=== PATIENT | female | born 1985 ===

== ENCOUNTER 2016-11-26 06:54 | Inpatient (IN) | payer OTHER ==
[2016-11-26] VITALS (24 sets, daily range): BP systolic 107–142; BP diastolic 43–99
[~2016-11-26] VITALS: Ht 167.6 cm; Wt 68.0 kg
[~2016-11-26 06:54] MED LIST: ceFAZolin sod 2 GM in D5W 110 ML IVPB ONE
[2016-11-26] MEDS ORDERED: Thrombin 5000 units TOPIC ONE (07:48)
[2016-11-26] MEDS ORDERED: Surgicel 4in x 8in TOPIC ONE (07:48)
[2016-11-26] MEDS ORDERED: Lacri-Lube Opth Oint 3.5gm ONE (07:48)
[2016-11-26] MEDS ORDERED: Bacitracin 50000 Units Vial ONE (07:49)
[2016-11-26] MEDS ORDERED: Vancomycin 1gm inj IVPB ONE (07:49)
[2016-11-26] MEDS ORDERED: Thrombin 5000 units spray kit TOPIC ONE (07:49)
[2016-11-26] MEDS ORDERED: Gelfoam Absorbable 1gm powder pkt TOPIC ONE (07:49)
[2016-11-26] MEDS ORDERED: Bupivacaine w/Epi 0.5% 30ml Vial INJ ONE (07:49)
[2016-11-26] MEDS ORDERED: GABAPENTIN800 MG ORAL (07:59)
[2016-11-26] MEDS ORDERED: CYCLOBENZAPRINE10 MG ORAL (07:59)
[2016-11-26] MEDS ORDERED: METHADONE10 MG/1 M1 PO (07:59)
--- NOTE | 2016-11-26 08:54 | Pre-Procedure Note/Attestation ---
Pre-Procedure Note/Attestation Complete Prior to Procedure Procedure Narrative: L5-S1 instrumentation, decompression and interbody fusion Indications for Procedure Pre-Operative Diagnosis: L5S1 annular tear with radiculopathy Attestation I attest that I discussed the nature of the procedure; its benefits; risks and complications; and alternatives (and the risks and benefits of such alternatives ), prior to the procedure, with the patient (or the patient's legal international account representative). I attest that, if there was a reasonable possibility of needing a blood transfusion, the patient (or the patient's legal international account representative) was given the [facility] standardized written summary, pursuant to the Jose Maria Luz Blood Safety Act ([place] Health and Safety Code # 1645, as amended). I attest that I re-evaluated the patient just prior to the surgery and that there has been no change in the patient's H&P, except as documented below: ARANZA CURRAN Nov 26, 2016 08:54
[2016-11-26] MEDS ORDERED: Sterile Water Irrig 1000ml IRRIG ONE (09:00)
[2016-11-26] MEDS ORDERED: Propofol 10mg/ml 100ml btl IV ONE (09:00)
[2016-11-26] MEDS ORDERED: Midazolam 2mg/2ml Inj ONE (09:00)
[2016-11-26] MEDS ORDERED: LR 1000ml ONE (09:00)
[2016-11-26] MEDS ORDERED: fentaNYL 250mcg/5ml ONE (09:00)
[2016-11-26] MEDS ORDERED: NS Irrig 1000ml ONE (09:00)
[2016-11-26] MEDS ORDERED: Nimbex 2mg/ml Inj 10ML IVP ONE (09:00)
[2016-11-26] MEDS ORDERED: LR 1000ml 1,000 ML IVLG SCH (10:34)
--- NOTE | 2016-11-26 10:42 | Anethesia Preoperative Eval ---
Anesthesia Pre-op PMH/ROS General Date of Evaluation: Nov 26, 2016 Time of Evaluation: 08:50 Anesthesiologist: Lisa ASA Score: ASA 3 Mallampati Score Class I : Soft palate, uvula, fauces, pillars visible Class II: Soft palate, uvula, fauces visible Class III: Soft palate, base of uvula visible Class IV: Only hard plate visible Mallampati Classification: Class II Surgeon: Polly Diagnosis: Lumbar Radiculopathy Surgical Procedure: Transforaminal lumbar interbody fusion Social History: drug use - On methadone maintenance Family History: no anesthesia problems Allergies: Coded Allergies: No Known Allergies (Unverified , 11/23/16) Medications: see eMAR Past Medical History Cardiovascular: Denies: CAD, HTN, [place], arrhythmia, other, valve dz Pulmonary: Denies: COPD, ESTHER, asthma, other Gastrointestinal/Genitourinary: Denies: CRI, ESRD, GERD, other Neurologic/Psychiatric: Reports: other - Seizure disorder, Denies: CVA, TIA, dementia, depression/anxiety Endocrine: Denies: DM, hypothyroidism, other, steroids HEENT: Denies: [place] (L), [place] (R), cataract (L), cataract (R), glaucoma, other Hematology/Immune: Denies: DVT, anemia, bleeding disorder, other Musculoskeletal/Integumentary: Denies: DDD, DJD, OA, RA, edema, other PMH Narrative: Hep C, Seizure disorder (secondary to traumatic brain injury), former substance abuse (on methadone maintenance) PSxH Narrative: Lower extremity ORIF. Anesthesia Pre-op Phys. Exam Physician Exam Last Vital Signs Date Time Temp Pulse Resp B/P Pulse Ox O2 Delivery O2 Flow Rate FiO2 11/26/16 07:33 98.6 74 20 107/68 98 Room Air Constitutional: NAD Neurologic: CN 2-12 intact Cardiovascular: RRR, no M/R/G Respiratory: CTA Gastrointestinal: S/NT/ND Airway Exam Mallampati Score: Class II MO: full ROM: full Teeth: intact Anesthesia Pre-op A/P Labs WNL Urine Test Test 11/26/16 07:10 Urine HCG, Qualitative Negative Studies Pre-op Studies: EKG - NSR, CXR Risk Assessment & Plan Assessment: 31 yo female with h/o Hep C, seizures and former substance abuse for Transforaminal LIF Plan: GETA Status Change Before Surgery: No Pre-Antibiotics Drug: Ancef Given Within 1 Hr of Incision: Yes Time Given: 09:15 AMY VILLAR M.D. Nov 26, 2016 10:42
--- NOTE | 2016-11-26 10:43 | Immediate Post-Op Evaluation ---
Immediate Post-Op Evalulation Immediate Post-Op Evalulation Procedure: PLIF Date of Evaluation: Nov 26, 2016 Time of Evaluation: 14:30 IV Fluids: 1750 Estimated Blood Loss: 200 Urinary Output: 200 Blood Pressure Systolic: 129 Blood Pressure Diastolic: 79 Pulse Rate: 98 Respiratory Rate: 20 O2 Sat by Pulse Oximetry: Temperature (Fahrenheit): 97.0 Pain Score (1-10): 6 Nausea: No Vomiting: No Complications No complication Patient Status: awake, patent, extubated, none Hydration Status: adequate Drug: Ancef Given Within 1 Hr of Incision: Yes Time Given: 09:15 AMY VILLAR M.D. Nov 26, 2016 10:43
[2016-11-26] MEDS ORDERED: Meperidine 25mg/0.5ml Inj IV PRN (10:45)
[2016-11-26] MEDS ORDERED: LORazepam Inj 2mg/ml 1ml IV PRN (10:45)
[2016-11-26] MEDS ORDERED: Hydromorphone 0.5mg/0.5ml inj IVP PRN (10:45)
[2016-11-26] MEDS ORDERED: Propofol 10mg/ml 20ml IV ONE (13:47)
--- NOTE | 2016-11-26 13:57 | Brief Operative Note ---
Immediate Post Operative Note Operative Note Pre-op Diagnosis: L5S1 annular tear with radiculopathy Procedure: L5S1 TLIF and decompression Post-op Diagnosis: same as pre-op Findings: consistent w/pre-op dx studies Surgeon: Polly Greenhouse Florist: Jude Anesthesiologist: Lisa Anesthesia: general Specimen: none Complications: none Condition: stable Fluids: 1750 Estimated Blood Loss: volume - 200cc Drains: hemovac Implant(s) used?: Yes ARANZA CURRAN Nov 26, 2016 13:57
[2016-11-26] MEDS ORDERED: LORazepam Inj 2mg/ml 1ml IV ONE ×3 (14:17→15:30)
[2016-11-26] MEDS: HYDROmorphone 1mg/ml Carpuject IVP SCH ×18 (14:30→22:52)
[2016-11-26] MEDS ORDERED: HYDROmorphone 1mg/ml Carpuject IVP STA (16:18)
[2016-11-26] MEDS ORDERED: Meperidine 50mg/ml Inj IM ONE (17:00)
[2016-11-26] MEDS ORDERED: Meperidine 50mg/ml Inj IVP ONE (17:15)
--- NOTE | 2016-11-26 17:25 | Diagnostic Imaging Report ---
Indication: PAIN, intraoperative Technique: Digital intraoperative image Comparison: None Findings: Intraoperative images demonstrate placement of localizer tool, apparently at L5-S1. Subsequent images document posterior fusion and placement of a disc spacer at L5-S1. Impression: Intraoperative imaging, as described
[2016-11-26] MEDS ORDERED: Naloxone 0.4mg/ml Inj IVP PRN ×2 (18:15→19:15)
[2016-11-26] MEDS ORDERED: HYDROmorphone 1mg/ml Carpuject SUBQ PRN (18:15)
[2016-11-26] MEDS ORDERED: Norco 5mg/325mg tab ORAL PRN (18:15)
[2016-11-26] MEDS ORDERED: Norco 7.5mg/325mg tab ORAL PRN ×2 (18:15)
[2016-11-26] MEDS ORDERED: LR 1000ml 1,000 ML IV SCH (19:00)
[2016-11-26] MEDS: D5 1/2NS 1,000 ML IV SCH (19:00)
[2016-11-26] MEDS ORDERED: Rate Change PCA 1 Each MISC PRN (19:15)
[2016-11-26] MEDS: PCA HYDROmorphone 1mg/ml 30 ML IV PRN (19:44)
[2016-11-26] MEDS: ceFAZolin sod 1 GM in D5W 55 ML IV SCH (21:32)
[2016-11-26] MEDS: Docusate 100mg cap ORAL SCH (21:53)
--- NOTE | 2016-11-26 22:35 | Consultation ---
History of Present Illness General Date patient seen: Nov 27, 2016 Present Illness Allergies: Coded Allergies: No Known Allergies (Unverified , 11/23/16) Medication History Scheduled Cyclobenzaprine Hcl* (Flexeril*), 10 MG ORAL THREE TIMES A DAY, (Reported) Gabapentin* (Gabapentin*), 900 MG ORAL TWICE A DAY, (Reported) Methadone Hcl (Methadone Hcl), 67 MG PO DAILY, (Reported) Patient History Healthcare decision maker Resuscitation status Full Code Advanced Directive on File No Physical Exam Last 24 Hour Vital Signs Date Time Temp Pulse Resp B/P Pulse Ox O2 Delivery O2 Flow Rate FiO2 11/26/16 20:26 97.7 75 18 120/71 98 Room Air 11/26/16 20:14 97.7 11/26/16 19:55 18 11/26/16 18:15 97.5 82 18 127/78 96 Nasal Cannula 2.0 11/26/16 18:00 97.9 85 16 116/78 98 Nasal Cannula 2.0 11/26/16 17:30 98.6 11/26/16 17:25 98.6 83 18 128/87 95 Nasal Cannula 3.0 11/26/16 17:15 96 18 115/89 95 Room Air 11/26/16 17:07 98.6 11/26/16 17:00 94 18 117/69 95 Room Air 11/26/16 16:48 97.0 11/26/16 16:47 93 16 118/76 98 Room Air 11/26/16 16:37 110 16 136/84 98 Room Air 11/26/16 16:30 101 20 140/99 98 Room Air 11/26/16 16:15 105 20 129/84 98 Room Air 11/26/16 16:05 100 20 129/84 98 Room Air 11/26/16 15:55 93 20 129/71 98 Room Air 11/26/16 15:40 93 20 129/71 98 Room Air 11/26/16 15:30 108 20 115/78 98 Room Air 11/26/16 15:20 90 20 125/77 98 Room Air 11/26/16 15:10 87 20 132/85 98 Room Air 11/26/16 15:00 117 20 142/73 98 Room Air 11/26/16 14:50 107 20 137/87 98 Room Air 11/26/16 14:40 107 20 117/43 98 Room Air 11/26/16 14:34 98 20 11/26/16 14:30 111 20 126/85 98 Room Air 11/26/16 14:25 102 20 135/94 98 Room Air 11/26/16 14:17 98 20 129/79 98 Simple Mask 8.0 11/26/16 14:15 97.0 98 20 129/79 98 Simple Mask 8.0 11/26/16 07:33 98.6 74 20 107/68 98 Room Air Laboratory Tests Test 11/26/16 07:10 Urine HCG, Qualitative Negative Height (Feet): 5 Height (Inches): 6.00 Weight (Pounds): 150 Medications Current Medications Medications (Trade) Dose Ordered Sig/Raf Route PRN Reason Start Time Stop Time Status Last Admin Dose Admin Cefazolin Sodium/ Dextrose (Ancef/D5W) 55 ml @ 110 mls/hr Q8H IV 11/26/16 20:00 11/27/16 12:29 11/26/16 21:32 Dextrose/Sodium Chloride 1,000 ml @ 100 mls/hr Q10H IV 11/26/16 19:00 12/26/16 18:59 11/26/16 19:00 Docusate Sodium (Colace) 100 mg TWICE A DAY ORAL 11/26/16 21:00 12/26/16 20:59 11/26/16 21:53 Gabapentin 800 mg 800 mg THREE TIMES A DAY ORAL 11/26/16 19:00 12/26/16 18:59 11/26/16 21:31 Hydromorphone HCl ([place] Dilaudid) 30 ml @ 0 mls/hr Q24H PRN IV For Pain 11/26/16 19:15 11/28/16 19:14 11/26/16 19:44 Methadone HCl (Methadone HCl) 67 mg DAILY ORAL 11/27/16 09:00 12/04/16 08:59 UNV Miscellaneous Medication ([place] Rate Change) 1 ea DAILYPRN PRN MISC rate change 11/26/16 19:15 11/28/16 19:14 Miscellaneous Medication ([employer] [place] shift volume) 1 ea Q12HR@0700,1900 MISC 11/27/16 07:00 11/29/16 06:59 Naloxone HCl (Narcan) 0.1 mg Q1M PRN IVP RR<10/min OR SBP<90 mmHg 11/26/16 19:15 11/28/16 19:14 Ondansetron HCl (Zofran) 4 mg Q6H PRN IVP Nausea & Vomiting 11/26/16 19:15 11/28/16 19:14 Oxycodone/ Acetaminophen (Percocet 10/325) 1 tab Q4H PRN ORAL moderate breakthrough pain 11/26/16 19:15 12/03/16 19:14 Assessment/Plan Assessment/Plan (1) Lumbar Herniated disc (2) Lumbar Radiculopathy (3) S/p Lumbar fusion (4) H/o Heroin Abuse on Methadone Seen dictated. AMANDA NELSON Nov 26, 2016 22:35
[2016-11-26] MEDS ORDERED: HYDROmorphone 1mg/ml Carpuject IVP PRN (22:45)
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
[2016-11-27] MEDS: ceFAZolin sod 1 GM in D5W 55 ML IV SCH ×2 (03:58→12:35)
[2016-11-27 04:00] VITALS: BP 127/77
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
[2016-11-27] MEDS: D5 1/2NS 1,000 ML IV SCH ×2 (05:59→11:53)
[2016-11-27] MEDS: PCA shift volume MISC SCH ×2 (07:00→19:16)
[2016-11-27 07:58] LABS: ALANINE AMINOTRANSFERASE 20 U/L (3-33); ALBUMIN/GLOBULIN RATIO 1.6 (1.0-2.7); ANION GAP 14 (5-15); ASPARTATE AMINO TRANSFERASE 50 U/L (5-40); CALCIUM 8.4 mg/dL (8.6-10.2); CARBON DIOXIDE 25 mEQ/L (20-30); CHLORIDE 99 mEQ/L (98-107); CREATININE 0.7 mg/dL (0.5-0.9); GLOMERULAR FILTRATION RATE > 60 mL/min (>60); HEMOLYSIS 5; POTASSIUM 3.2 mEQ/L (3.4-4.9); SODIUM 138 mEQ/L (135-145); TOTAL PROTEIN 6.1 g/dL (6.6-8.7)
[2016-11-27 08:06] LABS: BASOPHILS % (AUTO) 0.4 % (0.0-2.0); EOSINOPHILS % (AUTO) 0.1 % (0.0-3.0); LYMPHOCYTES % (AUTO) 13.6 % (20.0-45.0); MEAN CORPUSCULAR HEMOGLOBIN 30.2 PG (27.0-31.0); MEAN CORPUSCULAR HGB CONC 33.3 G/DL (32.0-36.0); MEAN CORPUSCULAR VOLUME 90 FL (80-99); MEAN PLATELET VOLUME 8.3 FL (6.5-10.1); MONOCYTES % (AUTO) 7.7 % (1.0-10.0); NEUTROPHILS % (AUTO) 78.2 % (45.0-75.0); PLATELET COUNT 139 K/UL (150-450); RED BLOOD COUNT 4.04 M/UL (4.20-5.40); RED CELL DISTRIBUTION WIDTH 11.5 % (11.6-14.8); WHITE BLOOD COUNT 8.9 K/UL (4.8-10.8)
[2016-11-27 08:13] VITALS: BP 125/67
[2016-11-27] MEDS ORDERED: LORazepam 1mg tab ORAL PRN (08:30)
[2016-11-27] MEDS: Docusate 100mg cap ORAL SCH ×2 (08:43→19:21)
--- NOTE | 2016-11-27 08:48 | General Progress Note ---
Assessment/Plan Assessment/Plan (1) Lumbar Herniated disc (2) Lumbar Radiculopathy (3) S/p Lumbar fusion (4) H/o Heroin Abuse on Methadone The patient will be continued on the Methadone, [employer] Dilaudid, Percocet and Neurontin. We will increase the Dilaudid IV to 2mg Q3H PRN severe pain. We will start Baclofen 10mg PO 1 tab Q8H and Valium 5 mg PO 1 tab Q6H PRN. The patient was discussed with Dr. Hoang and Dr. Hoang concurred. Subjective Date patient seen: Nov 27, 2016 Time patient seen: 06:45 - am Allergies: Coded Allergies: No Known Allergies (Unverified , 11/23/16) Subjective REVIEW OF SYSTEMS: Denies rash, fever, chills, sweating, dizziness, drowsiness, burred vision, sore throat, or change in weight. No shortness of breath or chest pain. No nausea, vomiting, diarrhea, or blood in the stool or urine. No bowel or bladder incontinence. No dysuria. She is complaining of low back pain. SUBJECTIVE: Patient is c/o severe pain and spasm in her lower back. She has used 20mg of the [employer] and received the daily methadone dose. Objective Last 24 Hour Vital Signs Date Time Temp Pulse Resp B/P Pulse Ox O2 Delivery O2 Flow Rate FiO2 11/27/16 08:13 98.1 107 20 125/67 98 Room Air 11/27/16 08:00 18 11/27/16 05:40 20 11/27/16 04:28 98.2 11/27/16 04:00 20 11/27/16 04:00 98.2 99 20 127/77 96 Room Air 11/27/16 01:40 18 11/27/16 00:00 18 11/26/16 21:40 18 11/26/16 21:10 18 11/26/16 20:40 18 11/26/16 20:26 97.7 75 18 120/71 98 Room Air 11/26/16 20:25 18 11/26/16 20:14 97.7 11/26/16 20:10 18 11/26/16 19:55 18 11/26/16 18:15 97.5 82 18 127/78 96 Nasal Cannula 2.0 11/26/16 18:00 97.9 85 16 116/78 98 Nasal Cannula 2.0 11/26/16 17:30 98.6 11/26/16 17:25 98.6 83 18 128/87 95 Nasal Cannula 3.0 11/26/16 17:15 96 18 115/89 95 Room Air 11/26/16 17:07 98.6 11/26/16 17:00 94 18 117/69 95 Room Air 11/26/16 16:48 97.0 11/26/16 16:47 93 16 118/76 98 Room Air 11/26/16 16:37 110 16 136/84 98 Room Air 11/26/16 16:30 101 20 140/99 98 Room Air 11/26/16 16:15 105 20 129/84 98 Room Air 11/26/16 16:05 100 20 129/84 98 Room Air 11/26/16 15:55 93 20 129/71 98 Room Air 11/26/16 15:40 93 20 129/71 98 Room Air 11/26/16 15:30 108 20 115/78 98 Room Air 11/26/16 15:20 90 20 125/77 98 Room Air 11/26/16 15:10 87 20 132/85 98 Room Air 11/26/16 15:00 117 20 142/73 98 Room Air 11/26/16 14:50 107 20 137/87 98 Room Air 11/26/16 14:40 107 20 117/43 98 Room Air 11/26/16 14:34 98 20 11/26/16 14:30 111 20 126/85 98 Room Air 11/26/16 14:25 102 20 135/94 98 Room Air 11/26/16 14:17 98 20 129/79 98 Simple Mask 8.0 11/26/16 14:15 97.0 98 20 129/79 98 Simple Mask 8.0 Intake and Output 11/26/16 11/27/16 19:00 07:00 Intake Total 3200 ml 900 ml Output Total 500 ml 2400 ml Balance 2700 ml -1500 ml Intake IV Total 3200 ml 900 ml Output Urine Total 300 ml 2300 ml Drainage Total 100 ml Estimated Blood Loss 200 ml # Voids 1 2 Laboratory Tests 11/27/16 07:20: White Blood Count 8.9, Red Blood Count 4.04L, Hemoglobin 12.2, Hematocrit 36.5L , Mean Corpuscular Volume 90, Mean Corpuscular Hemoglobin 30.2, Mean Corpuscular Hemoglobin Concent 33.3, Red Cell Distribution Width 11.5L, Platelet Count 139L, Mean Platelet Volume 8.3, Neutrophils (%) (Auto) 78.2H, Lymphocytes (%) (Auto) 13.6L, Monocytes (%) (Auto) 7.7, Eosinophils (%) (Auto) 0.1, Basophils (%) (Auto) 0.4, Sodium Level 138, Potassium Level 3.2L, Chloride Level 99, Carbon Dioxide Level 25, Anion Gap 14, Blood Urea Nitrogen 3L, Creatinine 0.7, Estimat Glomerular Filtration Rate > 60, Glucose Level 133H, Hemoglobin A1c [Pending], Calcium Level 8.4L, Total Bilirubin 0.5, Aspartate Amino Transf (AST/SGOT) 50H, Alanine Aminotransferase (ALT/SGPT) 20, Alkaline Phosphatase 64, Total Protein 6.1L, Albumin 3.8, Globulin 2.3, Albumin/Globulin Ratio 1.6 Height (Feet): 5 Height (Inches): 6.00 Weight (Pounds): 150 Objective GENERAL: Alert, awake, and oriented x3. NECK: Range of motion is full in all directions. No tenderness to paracervical muscles. No adenopathy. LUNGS: Clear. HEART: Regular. ABDOMEN: Benign. EXTREMITIES: No cyanosis. No clubbing. No edema. NEURO: No changes. AMANDA NELSON Nov 27, 2016 08:48
--- NOTE | 2016-11-27 09:17 | History & Physical ---
History and Physical History & Physicial patient is seen and examined. Dictation is completed Michelle Monique MD Nov 27, 2016 09:17
--- NOTE | 2016-11-27 09:19 | General Progress Note ---
Assessment/Plan Status: stable Assessment/Plan 1- Lumbar Spongylosis with Myelopathy: S/P LIF 2- Chronic pain 3- hep-C 4- Thrombocytopenia Plan: Pain management SCD's for pain DVT prophylaxia Hep-C treatment defer to out patient Subjective ROS Limited/Unobtainable: No Constitutional: Reports: other - mild pain HEENT: Reports: no symptoms Cardiovascular: Reports: no symptoms Gastrointestinal/Abdominal: Reports: no symptoms Allergies: Coded Allergies: No Known Allergies (Unverified , 11/23/16) Objective Last 24 Hour Vital Signs Date Time Temp Pulse Resp B/P Pulse Ox O2 Delivery O2 Flow Rate FiO2 11/27/16 08:13 98.1 107 20 125/67 98 Room Air 11/27/16 08:00 18 11/27/16 05:40 20 11/27/16 04:28 98.2 11/27/16 04:00 20 11/27/16 04:00 98.2 99 20 127/77 96 Room Air 11/27/16 01:40 18 11/27/16 00:00 18 11/26/16 21:40 18 11/26/16 21:10 18 11/26/16 20:40 18 11/26/16 20:26 97.7 75 18 120/71 98 Room Air 11/26/16 20:25 18 11/26/16 20:14 97.7 11/26/16 20:10 18 11/26/16 19:55 18 11/26/16 18:15 97.5 82 18 127/78 96 Nasal Cannula 2.0 11/26/16 18:00 97.9 85 16 116/78 98 Nasal Cannula 2.0 11/26/16 17:30 98.6 11/26/16 17:25 98.6 83 18 128/87 95 Nasal Cannula 3.0 11/26/16 17:15 96 18 115/89 95 Room Air 11/26/16 17:07 98.6 11/26/16 17:00 94 18 117/69 95 Room Air 11/26/16 16:48 97.0 11/26/16 16:47 93 16 118/76 98 Room Air 11/26/16 16:37 110 16 136/84 98 Room Air 11/26/16 16:30 101 20 140/99 98 Room Air 11/26/16 16:15 105 20 129/84 98 Room Air 11/26/16 16:05 100 20 129/84 98 Room Air 11/26/16 15:55 93 20 129/71 98 Room Air 11/26/16 15:40 93 20 129/71 98 Room Air 11/26/16 15:30 108 20 115/78 98 Room Air 11/26/16 15:20 90 20 125/77 98 Room Air 11/26/16 15:10 87 20 132/85 98 Room Air 11/26/16 15:00 117 20 142/73 98 Room Air 11/26/16 14:50 107 20 137/87 98 Room Air 11/26/16 14:40 107 20 117/43 98 Room Air 11/26/16 14:34 98 20 11/26/16 14:30 111 20 126/85 98 Room Air 11/26/16 14:25 102 20 135/94 98 Room Air 11/26/16 14:17 98 20 129/79 98 Simple Mask 8.0 11/26/16 14:15 97.0 98 20 129/79 98 Simple Mask 8.0 Intake and Output 11/26/16 11/27/16 19:00 07:00 Intake Total 3200 ml 900 ml Output Total 500 ml 2400 ml Balance 2700 ml -1500 ml Intake IV Total 3200 ml 900 ml Output Urine Total 300 ml 2300 ml Drainage Total 100 ml Estimated Blood Loss 200 ml # Voids 1 2 Laboratory Tests 11/27/16 07:20: White Blood Count 8.9, Red Blood Count 4.04L, Hemoglobin 12.2, Hematocrit 36.5L , Mean Corpuscular Volume 90, Mean Corpuscular Hemoglobin 30.2, Mean Corpuscular Hemoglobin Concent 33.3, Red Cell Distribution Width 11.5L, Platelet Count 139L, Mean Platelet Volume 8.3, Neutrophils (%) (Auto) 78.2H, Lymphocytes (%) (Auto) 13.6L, Monocytes (%) (Auto) 7.7, Eosinophils (%) (Auto) 0.1, Basophils (%) (Auto) 0.4, Sodium Level 138, Potassium Level 3.2L, Chloride Level 99, Carbon Dioxide Level 25, Anion Gap 14, Blood Urea Nitrogen 3L, Creatinine 0.7, Estimat Glomerular Filtration Rate > 60, Glucose Level 133H, Hemoglobin A1c 4.5, Calcium Level 8.4L, Total Bilirubin 0.5, Aspartate Amino Transf (AST/SGOT) 50H, Alanine Aminotransferase (ALT/SGPT) 20, Alkaline Phosphatase 64, Total Protein 6.1L, Albumin 3.8, Globulin 2.3, Albumin/Globulin Ratio 1.6 Height (Feet): 5 Height (Inches): 6.00 Weight (Pounds): 150 General Appearance: mild distress EENT: PERRL/EOMI Neck: supple Cardiovascular: normal rate Respiratory/Chest: lungs clear Abdomen: soft Genitourinary/Rectal: normal rectal exam Extremities: non-tender 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
--- NOTE | 2016-11-27 10:16 | History and Physical Report ---
DATE OF ADMISSION: 11/26/2016 SOURCE OF INFORMATION: The patient and EMR. HISTORY OF PRESENT ILLNESS: The patient is a pleasant 31-year-old female with a history of chronic pain who is a status post lumbar surgery. At the time of evaluation on the floor, the patient is in mild to moderate pain. However, the patient is stable. Denies any abnormal bleeding. Denies any chest pain or shortness of breath. REVIEW OF SYSTEMS: All 12 elements of the review of systems are reviewed. Pertinent positive and negative as above. PAST MEDICAL HISTORY: Lumbar spondylosis, hepatitis C, and chronic pain. PAST SURGICAL HISTORY: Right-sided hip/femur surgery and the lumbar surgery/fusion in April 2016. HOME MEDICATIONS: Methadone, gabapentin, and Flexeril. ALLERGIES: NKDA. FAMILY HISTORY: Reviewed noncontributory. PHYSICAL EXAMINATION: VITAL SIGNS: Blood pressure 110/70, temperature 98.2, respiratory rate 18, and pulse oximetry 98% on two liters of oxygen. HEAD AND NECK: Atraumatic and normocephalic. CHEST: Clear to auscultation. HEART: S1 and S2. Regular rate and rhythm. ABDOMEN: Soft. No organomegaly. MUSCULOSKELETAL: Decreased range of motion in the lower extremities secondary to the pain. NEUROLOGIC: The patient is awake, alert and oriented x3. No cranial nerve deficit. The patient is anxious. LABORATORY DATA: Lab results dated 11/27/2016 shows WBC 8.9, hemoglobin 12.2, and platelets 139,000. Sodium 138, potassium 3.2, BUN 3, and creatinine 0.7. AST 50. ASSESSMENT AND PLAN: 1. Lumbar spondylosis with myelopathy, status post surgery with fusion, revision. 2. Hepatitis C. 3. Abnormal liver function tests. 4. Chronic pain on methadone. 5. Anxiety and depression. 6. Thrombocytopenia. 7. Gastrointestinal and deep vein thrombosis prophylaxis. PLAN OF CARE: We will continue with the non heparin like products for DVT prophylaxis. Pain management, Dr. Hoang has been consulted. The patient reported that has been scheduled to see GI/desk assistant for continuation of care for hepatitis C. We will avoid the hepatotoxic medications and will monitor the abnormal liver function test enzymes. Dear Dr. Matias and Dr. Burton, thanks for giving me the opportunity to participate in the patient's care. Michelle Monique M.D. DR: KACIE JOB#: [id number] CC:
--- NOTE | 2016-11-27 10:37 | 48 Hour Post Anesthesia Eval ---
Post Anesthesia Evaluation Procedure: PLIF Date of Evaluation: Nov 27, 2016 Time of Evaluation: 16:45 Blood Pressure Systolic: 125 0: 67 Pulse Rate: 103 Respiratory Rate: 20 Temperature (Fahrenheit): 98.1 O2 Sat by Pulse Oximetry: 98 Airway: patent Nausea: No Vomiting: No Pain Intensity: 4 Hydration Status: adequate Cardiopulmonary Status: Stable Mental Status/LOC: patient returned to baseline Follow-up Care/Observations: As per surgery Post-Anesthesia Complications: No anesthetic complication Follow-up care needed: N/A AMY VILLAR M.D. Nov 27, 2016 10:37
[2016-11-27 11:47] VITALS: BP 106/58
--- NOTE | 2016-11-27 12:01 | Consultation ---
DATE OF CONSULTATION: SOURCE OF INFORMATION: The patient and EMR. HISTORY OF PRESENT ILLNESS: The patient is a pleasant 31-year-old female with a history of chronic pain who is a status post lumbar surgery. At the time of evaluation on the floor, the patient is in mild to moderate pain. However, the patient is stable. Denies any abnormal bleeding. Denies any chest pain or shortness of breath. REVIEW OF SYSTEMS: All 12 elements of the review of systems are reviewed. Pertinent positive and negative as above. PAST SURGICAL HISTORY: Right-sided hip/femur surgery and the lumbar surgery/fusion in April 2016. ALLERGIES: NKDA. FAMILY HISTORY: Reviewed noncontributory. PHYSICAL EXAMINATION: VITAL SIGNS: Blood pressure 110/70, temperature 98.2, respiratory rate 18, and pulse oximetry 98% on two liters of oxygen. HEAD AND NECK: Atraumatic and normocephalic. CHEST: Clear to auscultation. HEART: S1 and S2. Regular rate and rhythm. ABDOMEN: Soft. No organomegaly. MUSCULOSKELETAL: Decreased range of motion in the lower extremities secondary to the pain. NEUROLOGIC: The patient is awake, alert and oriented x3. No cranial nerve deficit. The patient is anxious. HOME MEDICATIONS: Methadone, gabapentin, and Flexeril. PAST MEDICAL HISTORY: Lumbar spondylosis, hepatitis C, and chronic pain. LABORATORY DATA: Lab results dated 11/27/2016 shows WBC 8.9, hemoglobin 12.2, and platelets 139,000. Sodium 138, potassium 3.2, BUN 3, and creatinine 0.7. AST 50. ASSESSMENT AND PLAN: 1. Lumbar spondylosis with myelopathy, status post surgery with fusion, revision. 2. Hepatitis C. 3. Abnormal liver function tests. 4. Chronic pain on methadone. 5. Anxiety and depression. 6. Thrombocytopenia. 7. Gastrointestinal and deep vein thrombosis prophylaxis. PLAN OF CARE: We will continue with the non-heparin like products for DVT prophylaxis. Pain management, Dr. Hoang has been consulted. The patient reported that has been scheduled to see GI/metal coater for continuation of care for hepatitis C. We will avoid the hepatotoxic medications and will monitor the abnormal liver function test enzymes. Dear Dr. Matias and Dr. Burton, thanks for giving me the opportunity to participate in the patient's care. Michelle Monique M.D. DR: KACIE JOB#: [id number] CC:
[2016-11-27] MEDS: PCA HYDROmorphone 1mg/ml 30 ML IV PRN (13:32)
[2016-11-27] MEDS ORDERED: D5 1/2NS 1000ml IV ONE (15:49)
[2016-11-27] MEDS ORDERED: Tubing IV Secondary IV ONE (15:49)
[2016-11-27] MEDS ORDERED: D5NS 1000ml IV ONE (15:49)
[2016-11-27 16:20] VITALS: BP 117/65
[2016-11-27 20:00] VITALS: BP 121/71
--- NOTE | 2016-11-27 21:53 | General Progress Note ---
Progress Note Progress Note Patient doing well post op. Notes that right leg pain and numbness in the right leg have resolved. She has LBP at the site of the surgery. Being followed by pain management team. On LOTTERY OFFICE MANAGER and dilaudid every three hours. O: VSS x pulse at 110 Inc cdi motor in the le 5/5 calves are soft and non tender LT intact in the le abd soft and nt HV out Valdivia in place A: Doing well post op; lbp after TLIF pain management cont brace labs tomorrow oob ambulate with brace dc when pain well controlled and off of iv pain meds. ARANZA CURRAN Nov 27, 2016 21:53
[2016-11-28] VITALS: BP 104/52
[2016-11-28] MEDS: D5 1/2NS 1,000 ML IV SCH ×3 (02:11→21:00)
[2016-11-28 04:00] VITALS: BP 109/47
[2016-11-28] MEDS: PCA shift volume MISC SCH (07:00)
[2016-11-28 07:08] LABS: BASOPHILS % (AUTO) 0.6 % (0.0-2.0); EOSINOPHILS % (AUTO) 0.1 % (0.0-3.0); LYMPHOCYTES % (AUTO) 19.3 % (20.0-45.0); MEAN CORPUSCULAR HEMOGLOBIN 30.4 PG (27.0-31.0); MEAN CORPUSCULAR VOLUME 92 FL (80-99); MEAN PLATELET VOLUME 7.9 FL (6.5-10.1); MONOCYTES % (AUTO) 10.4 % (1.0-10.0); NEUTROPHILS % (AUTO) 69.6 % (45.0-75.0); PLATELET COUNT 140 K/UL (150-450); RED BLOOD COUNT 3.82 M/UL (4.20-5.40); RED CELL DISTRIBUTION WIDTH 11.6 % (11.6-14.8); WHITE BLOOD COUNT 12.5 K/UL (4.8-10.8)
--- NOTE | 2016-11-28 08:34 | General Progress Note ---
Assessment/Plan Status: stable Assessment/Plan ASSESSMENT AND PLAN: 1. Lumbar spondylosis with myelopathy, status post surgery with fusion, revision. 2. Hepatitis C. 3. Abnormal liver function tests. 4. Chronic pain on methadone. 5. Anxiety and depression. 6. Thrombocytopenia. 7. Gastrointestinal and deep vein thrombosis prophylaxis. 8. Leukocytosis Plan: Try to monitor urination Off Valdivia Will monitor pain , Off MEMORIAL ADVISER and IV pain meds Recheck CMP, CBC today No gross evidence of active acute infection , likely reactive leukocytosis post- op. Subjective ROS Limited/Unobtainable: No Constitutional: Reports: other - tingling in lower extremities, HEENT: Reports: no symptoms Cardiovascular: Reports: no symptoms Respiratory: Reports: no symptoms Gastrointestinal/Abdominal: Reports: no symptoms Allergies: Coded Allergies: No Known Allergies (Unverified , 11/23/16) Objective Last 24 Hour Vital Signs Date Time Temp Pulse Resp B/P Pulse Ox O2 Delivery O2 Flow Rate FiO2 11/28/16 07:28 98.9 11/28/16 04:41 98.9 11/28/16 04:00 98.9 93 18 109/47 99 Nasal Cannula 2.0 11/28/16 04:00 18 11/28/16 00:00 16 11/28/16 00:00 98.1 93 20 104/52 99 Nasal Cannula 5.0 11/27/16 20:00 98.8 106 18 121/71 100 Nasal Cannula 5.0 11/27/16 20:00 16 11/27/16 16:20 98.1 109 20 117/65 97 Room Air 11/27/16 16:00 16 11/27/16 14:02 98.8 11/27/16 14:00 16 11/27/16 12:00 20 11/27/16 11:47 98.8 99 20 106/58 97 Room Air 11/27/16 10:37 103 20 98 Intake and Output 11/27/16 11/28/16 19:00 07:00 Intake Total 1755 ml 840 ml Output Total 2200 ml 3050 ml Balance -445 ml -2210 ml Intake Oral 600 ml 240 ml IV Total 1155 ml 600 ml Output Urine Total 2200 ml 3050 ml Laboratory Tests 11/28/16 05:15: White Blood Count 12.5H, Red Blood Count 3.82L, Hemoglobin 11.6L, Hematocrit 35.2L, Mean Corpuscular Volume 92, Mean Corpuscular Hemoglobin 30.4, Mean Corpuscular Hemoglobin Concent 33.0, Red Cell Distribution Width 11.6, Platelet Count 140L, Mean Platelet Volume 7.9, Neutrophils (%) (Auto) 69.6, Lymphocytes ( %) (Auto) 19.3L, Monocytes (%) (Auto) 10.4H, Eosinophils (%) (Auto) 0.1, Basophils (%) (Auto) 0.6 Height (Feet): 5 Height (Inches): 6.00 Weight (Pounds): 150 General Appearance: no apparent distress EENT: PERRL/EOMI Neck: supple Cardiovascular: normal rate Respiratory/Chest: lungs clear Abdomen: soft Extremities: other - pain in lower extremities, improved compare to yesterday 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
--- NOTE | 2016-11-28 08:41 | General Progress Note ---
Assessment/Plan Assessment/Plan (1) Lumbar Herniated disc (2) Lumbar Radiculopathy (3) S/p Lumbar fusion (4) H/o Heroin Abuse on Methadone The patient will be continued on the Valium, Baclofen, Methadone, Dilaudid IV, Percocet and Neurontin. We will discontinue the MACHINE SANDER Dilaudid. Rx for Percocet 10/325mg 45 tabs, Neurontin 800mg 45 tabs and Baclofen 10mg 45 tabs was written in anticipation for discharge. The patient was discussed with Dr. Hoang and Dr. Hoang concurred. Subjective Date patient seen: Nov 28, 2016 Time patient seen: 07:45 - am Allergies: Coded Allergies: No Known Allergies (Unverified , 11/23/16) Subjective REVIEW OF SYSTEMS: Denies rash, fever, chills, sweating, dizziness, drowsiness, burred vision, sore throat, or change in weight. No shortness of breath or chest pain. No nausea, vomiting, diarrhea, or blood in the stool or urine. No bowel or bladder incontinence. No dysuria. She is complaining of low back pain. SUBJECTIVE: She is doing well this morning.The pain is better and has used 24mg of the MACHINE SANDER. I d/w her about stopping the MACHINE SANDER and she understands. Objective Last 24 Hour Vital Signs Date Time Temp Pulse Resp B/P Pulse Ox O2 Delivery O2 Flow Rate FiO2 11/28/16 07:28 98.9 11/28/16 04:41 98.9 11/28/16 04:00 98.9 93 18 109/47 99 Nasal Cannula 2.0 11/28/16 04:00 18 11/28/16 00:00 16 11/28/16 00:00 98.1 93 20 104/52 99 Nasal Cannula 5.0 11/27/16 20:00 98.8 106 18 121/71 100 Nasal Cannula 5.0 11/27/16 20:00 16 11/27/16 16:20 98.1 109 20 117/65 97 Room Air 11/27/16 16:00 16 11/27/16 14:02 98.8 11/27/16 14:00 16 11/27/16 12:00 20 11/27/16 11:47 98.8 99 20 106/58 97 Room Air 11/27/16 10:37 103 20 98 Intake and Output 11/27/16 11/28/16 19:00 07:00 Intake Total 1755 ml 840 ml Output Total 2200 ml 3050 ml Balance -445 ml -2210 ml Intake Oral 600 ml 240 ml IV Total 1155 ml 600 ml Output Urine Total 2200 ml 3050 ml Laboratory Tests 11/28/16 05:15: White Blood Count 12.5H, Red Blood Count 3.82L, Hemoglobin 11.6L, Hematocrit 35.2L, Mean Corpuscular Volume 92, Mean Corpuscular Hemoglobin 30.4, Mean Corpuscular Hemoglobin Concent 33.0, Red Cell Distribution Width 11.6, Platelet Count 140L, Mean Platelet Volume 7.9, Neutrophils (%) (Auto) 69.6, Lymphocytes ( %) (Auto) 19.3L, Monocytes (%) (Auto) 10.4H, Eosinophils (%) (Auto) 0.1, Basophils (%) (Auto) 0.6 Height (Feet): 5 Height (Inches): 6.00 Weight (Pounds): 150 Objective GENERAL: Alert, awake, and oriented x3. NECK: Range of motion is full in all directions. No tenderness to paracervical muscles. No adenopathy. LUNGS: Clear. HEART: Regular. ABDOMEN: Benign. EXTREMITIES: No cyanosis. No clubbing. No edema. NEURO: No changes. AMANDA NELSON Nov 28, 2016 08:41
[2016-11-28] MEDS: Docusate 100mg cap ORAL SCH ×2 (09:35→18:44)
[2016-11-28 15:55] VITALS: BP 126/68
[2016-11-28 21:35] VITALS: BP 110/56
[2016-11-29] MEDS: D5 1/2NS 1,000 ML IV SCH ×2 (00:03)
[2016-11-29 00:08] VITALS: BP 108/65
[2016-11-29 08:04] VITALS: BP 109/70
[2016-11-29 08:36] LABS: BASOPHILS % (AUTO) 0.5 % (0.0-2.0); EOSINOPHILS % (AUTO) 1.1 % (0.0-3.0); LYMPHOCYTES % (AUTO) 27.7 % (20.0-45.0); MEAN CORPUSCULAR HEMOGLOBIN 30.4 PG (27.0-31.0); MEAN CORPUSCULAR HGB CONC 33.6 G/DL (32.0-36.0); MEAN CORPUSCULAR VOLUME 91 FL (80-99); MEAN PLATELET VOLUME 7.8 FL (6.5-10.1); MONOCYTES % (AUTO) 7.7 % (1.0-10.0); PLATELET COUNT 145 K/UL (150-450); RED BLOOD COUNT 3.73 M/UL (4.20-5.40); RED CELL DISTRIBUTION WIDTH 11.3 % (11.6-14.8); WHITE BLOOD COUNT 7.6 K/UL (4.8-10.8)
[2016-11-29 08:48] LABS: ALANINE AMINOTRANSFERASE 20 U/L (3-33); ALBUMIN/GLOBULIN RATIO 1.2 (1.0-2.7); ANION GAP 14 (5-15); ASPARTATE AMINO TRANSFERASE 37 U/L (5-40); CALCIUM 9.2 mg/dL (8.6-10.2); CARBON DIOXIDE 26 mEQ/L (20-30); CHLORIDE 100 mEQ/L (98-107); CREATININE 0.7 mg/dL (0.5-0.9); GLOMERULAR FILTRATION RATE > 60 mL/min (>60); HEMOLYSIS 3; POTASSIUM 3.7 mEQ/L (3.4-4.9); SODIUM 140 mEQ/L (135-145); TOTAL PROTEIN 6.4 g/dL (6.6-8.7)
--- NOTE | 2016-11-29 08:48 | General Progress Note ---
Assessment/Plan Assessment/Plan (1) Lumbar Herniated disc (2) Lumbar Radiculopathy (3) S/p Lumbar fusion (4) H/o Heroin Abuse on Methadone The patient will be continued on the Valium, Baclofen, Methadone, Dilaudid IV, Percocet and Neurontin. The patient was discussed with Dr. Hoang and Dr. Hoang concurred. Subjective Date patient seen: Nov 29, 2016 Time patient seen: 07:15 - am Allergies: Coded Allergies: No Known Allergies (Unverified , 11/23/16) Subjective REVIEW OF SYSTEMS: Denies rash, fever, chills, sweating, dizziness, drowsiness, burred vision, sore throat, or change in weight. No shortness of breath or chest pain. No nausea, vomiting, diarrhea, or blood in the stool or urine. No bowel or bladder incontinence. No dysuria. She is complaining of low back pain. SUBJECTIVE: Pain has been well controlled on the medications. At this time rating it a 5/10. Objective Last 24 Hour Vital Signs Date Time Temp Pulse Resp B/P Pulse Ox O2 Delivery O2 Flow Rate FiO2 11/29/16 08:04 97.3 91 20 109/70 98 Room Air 11/29/16 00:08 98.8 97 20 108/65 96 Room Air 11/28/16 21:35 98.8 110 20 110/56 97 Room Air 11/28/16 15:55 98.2 99 20 126/68 98 Room Air Intake and Output 11/28/16 11/29/16 19:00 07:00 Intake Total 1200 ml 300 ml Balance 1200 ml 300 ml Intake Oral 1200 ml 300 ml # Voids 4 3 Laboratory Tests 11/29/16 07:50: White Blood Count 7.6, Red Blood Count 3.73L, Hemoglobin 11.4L, Hematocrit 33.8L , Mean Corpuscular Volume 91, Mean Corpuscular Hemoglobin 30.4, Mean Corpuscular Hemoglobin Concent 33.6, Red Cell Distribution Width 11.3L, Platelet Count 145L, Mean Platelet Volume 7.8, Neutrophils (%) (Auto) 63.0, Lymphocytes (%) (Auto) 27.7, Monocytes (%) (Auto) 7.7, Eosinophils (%) (Auto) 1.1, Basophils (%) (Auto) 0.5, Sodium Level [Pending], Potassium Level [Pending] , Chloride Level [Pending], Carbon Dioxide Level [Pending], Blood Urea Nitrogen [Pending], Creatinine [Pending], Estimat Glomerular Filtration Rate [Pending], Glucose Level [Pending], Calcium Level [Pending], Total Bilirubin [Pending], Aspartate Amino Transf (AST/SGOT) [Pending], Alanine Aminotransferase (ALT/SGPT ) [Pending], Alkaline Phosphatase [Pending], Total Protein [Pending], Albumin [ Pending], Globulin [Pending] Height (Feet): 5 Height (Inches): 6.00 Weight (Pounds): 150 Objective GENERAL: Alert, awake, and oriented x3. NECK: Range of motion is full in all directions. No tenderness to paracervical muscles. No adenopathy. LUNGS: Clear. HEART: Regular. ABDOMEN: Benign. EXTREMITIES: No cyanosis. No clubbing. No edema. NEURO: No changes. AMANDA NELSON. Nov 29, 2016 08:48
--- NOTE | 2016-11-29 09:14 | General Progress Note ---
Progress Note Progress Note Doing well post op. LBP. Leg pain has been resolved. AVSS A and O times three inc cdi no drainage 5/5 in the le calves soft and nt lt intact ambulating well A: Stable P: dc today with pain management to give pain rx fu within 7 days brace spine precautions ARANZA CURRAN Nov 29, 2016 09:14
[2016-11-29] MEDS: Docusate 100mg cap ORAL SCH (10:18)
[2016-11-29 11:50] VITALS: BP 109/74
--- NOTE | 2016-11-29 12:58 | General Progress Note ---
Assessment/Plan Status: stable Assessment/Plan ASSESSMENT AND PLAN: 1. Lumbar spondylosis with myelopathy, status post surgery with fusion, revision. 2. Hepatitis C. 3. Abnormal liver function tests. 4. Chronic pain on methadone. 5. Anxiety and depression. 6. Thrombocytopenia. 7. Gastrointestinal and deep vein thrombosis prophylaxis. 8. Leukocytosis Plan: tolerated on PO pain management and Off Valdivia Ok to followup as out patient Subjective ROS Limited/Unobtainable: No Allergies: Coded Allergies: No Known Allergies (Unverified , 11/23/16) Objective Last 24 Hour Vital Signs Date Time Temp Pulse Resp B/P Pulse Ox O2 Delivery O2 Flow Rate FiO2 11/29/16 11:50 97.8 74 21 109/74 96 Room Air 11/29/16 08:04 97.3 91 20 109/70 98 Room Air 11/29/16 00:08 98.8 97 20 108/65 96 Room Air 11/28/16 21:35 98.8 110 20 110/56 97 Room Air 11/28/16 15:55 98.2 99 20 126/68 98 Room Air Intake and Output 11/28/16 11/29/16 19:00 07:00 Intake Total 1200 ml 300 ml Balance 1200 ml 300 ml Intake Oral 1200 ml 300 ml # Voids 4 3 Laboratory Tests 11/29/16 07:50: White Blood Count 7.6, Red Blood Count 3.73L, Hemoglobin 11.4L, Hematocrit 33.8L , Mean Corpuscular Volume 91, Mean Corpuscular Hemoglobin 30.4, Mean Corpuscular Hemoglobin Concent 33.6, Red Cell Distribution Width 11.3L, Platelet Count 145L, Mean Platelet Volume 7.8, Neutrophils (%) (Auto) 63.0, Lymphocytes (%) (Auto) 27.7, Monocytes (%) (Auto) 7.7, Eosinophils (%) (Auto) 1.1, Basophils (%) (Auto) 0.5, Sodium Level 140, Potassium Level 3.7, Chloride Level 100, Carbon Dioxide Level 26, Anion Gap 14, Blood Urea Nitrogen 5L, Creatinine 0.7, Estimat Glomerular Filtration Rate > 60, Glucose Level 137H, Calcium Level 9.2, Total Bilirubin 0.4, Aspartate Amino Transf (AST/SGOT) 37, Alanine Aminotransferase (ALT/SGPT) 20, Alkaline Phosphatase 67, Total Protein 6.4L, Albumin 3.6, Globulin 2.8, Albumin/Globulin Ratio 1.2 Height (Feet): 5 Height (Inches): 6.00 Weight (Pounds): 150 General Appearance: no apparent distress EENT: PERRL/EOMI Neck: supple Cardiovascular: normal rate Respiratory/Chest: lungs clear Abdomen: soft Extremities: non-tender, other - decreased ROm post op 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
[2016-11-29] MEDS ORDERED: PERCOCET 10-321 EAC1 PO (15:47)
[2016-11-29] MEDS ORDERED: BACLOFEN10 MG ORAL (15:49)
[2016-11-29] MEDS ORDERED: NEURONTIN800 MG ORAL (15:50)
[2016-11-29 15:56] VITALS: BP 117/71
--- NOTE | 2016-11-30 10:14 | Discharge Summary ---
Discharge Summary Hospital Course Date of Admission Nov 26, 2016 at 06:54 Date of Discharge Nov 29, 2016 at 16:06 Admitting Diagnosis HPI Pricila Naranjo is a 31 year old female who was admitted on Nov 26, 2016 at 06:54 for Lumbar Radiculopathy Hospital Course [id number] Discharge Discharge Disposition Patient was discharged to Home (01) Discharge Diagnoses: Georgette Manuel NP Nov 30, 2016 10:14
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
== END 2016-11-29 16:06 | disposition home or self-care (01) | DRG 460 ==
LOC: SDSOVERFLO 06:54 → 4E 18:06 → 3E 18:35
DX: M51.17 Intervertebral disc disorders with radiculopathy, lumbosacral region (principal); D69.6 Thrombocytopenia, unspecified; F11.20 Opioid dependence, uncomplicated; M48.07 Spinal stenosis, lumbosacral region; B19.20 Unspecified viral hepatitis C without hepatic coma; G89.29 Other chronic pain; F41.8 Other specified anxiety disorders
CPT/HCPCS: 36415; 72020; 76001; 80053; 81025; 83036; 85025; 86850; 86900; 86901; 87081; 94003; 94150; J2180; J2250; J2405